=== PATIENT | female | born 1985 | race Caucasian/White ===

== ENCOUNTER 2022-12-11 21:21 | Outpatient (CLI) | payer OTHER, SELFPAY ==
[2022-12-11 21:38] LABS: Basophils Absolute Auto 0.06 K/mm3 (0.00-0.10); Basophils Percent Auto 0.7 % (0.0-1.0); Eosinophils Percent Auto 1.1 % (1.0-6.0); Hematocrit 40.5 % (35.0-49.0); Immature Granulocyte Absolute 0.03 K/mm3 (0.00-0.00); Immature Granulocyte Percent A 0.3 % (0.0-0.0); Lymphocytes Absolute Auto 3.23 K/mm3 (1.10-4.50); Lymphocytes Percent Auto 35.2 % (18.0-42.0); Mean Corpuscular HGB Conc 34.6 g/dL (32.0-36.0); Mean Corpuscular Hemoglobin 32.7 pg (27.0-31.0); Mean Corpuscular Volume 94.6 fL (78.0-102.0); Mean Platelet Volume 9.5 fl (9.2-11.8); Monocytes Absolute Auto 0.64 K/mm3 (0.10-0.90); Neutrophils Absolute Auto 5.1 K/mm3 (1.7-7.2); Neutrophils Percent Auto 55.7 % (50.0-70.0); Platelet Count Result 291 K/mm3 (150-420); Red Blood Count 4.28 M/mm3 (4.20-5.40); Red Cell Distribution Width 11.9 % (11.6-14.4); White Blood Count 9.2 K/mm3 (4.8-10.8)
[2022-12-11 22:02] LABS: Alanine Aminotransferase 55 U/L (14-59); Albumin Level 4.1 g/dL (3.4-5.0); Alkaline Phosphatase 99 U/L (46-116); Anion Gap 9 mmol/L (8-16); Aspartate Amino Transferase 26 U/L (15-37); Bilirubin,Total 0.3 mg/dL (0.00-1.00); Blood Urea Nitrogen 14 mg/dL (7-18); Calcium 9.2 mg/dL (8.5-10.1); Carbon Dioxide 30 mmol/L (21-32); Chloride 102 mmol/L (98-108); Cholesterol 179 mg/dL (0-200); Estimated Glomerular Filt Rate > 60; Glucose 101 mg/dL (70-99); HDL Direct 50 mg/dL (40-60); LDL Cholesterol Calculated 101 mg/dL (<130); Osmolality Calculated 292 mOsm/kg (285-295); Potassium 3.6 mmol/L (3.5-5.1); Sodium 141 mmol/L (136-145); Total Protein 7.9 g/dL (6.4-8.2); Triglycerides 141 mg/dL (0-150)
== END 2022-12-11 21:22 | disposition home or self-care (01) ==
LOC: CHSLAB 21:24
PROVIDERS: PCP Family Medicine; Visit Provider Family Medicine
DX: Z00.00 Encounter for general adult medical examination without abnormal findings (principal)
CPT/HCPCS: 36415; 80053; 80061; 85025

== ENCOUNTER 2024-10-23 09:20 | Outpatient (CLI) | payer OTHER, SELFPAY ==
[2024-10-23 09:35] LABS: Basophils Absolute Auto 0.06 K/mm3 (0.00-0.10); Eosinophils Absolute Auto 0.15 K/mm3 (0.02-0.50); Eosinophils Percent Auto 2.4 % (1.0-6.0); Hematocrit 41.3 % (35.0-49.0); Immature Granulocyte Absolute 0.02 K/mm3 (0.00-0.00); Immature Granulocyte Percent A 0.3 % (0.0-0.0); Lymphocytes Absolute Auto 2.28 K/mm3 (1.10-4.50); Lymphocytes Percent Auto 36.2 % (18.0-42.0); Mean Corpuscular HGB Conc 33.9 g/dL (32-36); Mean Corpuscular Hemoglobin 31.8 pg (27.0-31.0); Mean Corpuscular Volume 93.9 fL (78.0-102.0); Mean Platelet Volume 9.4 fl (9.2-11.8); Monocytes Absolute Auto 0.41 K/mm3 (0.10-0.90); Monocytes Percent Auto 6.5 % (2.0-11.0); Neutrophils Absolute Auto 3.37 K/mm3 (1.70-7.20); Neutrophils Percent Auto 53.6 % (50.0-70.0); Platelet Count Result 305 K/mm3 (150-420); Red Cell Distribution Width 12.1 % (11.6-14.4); White Blood Count 6.3 K/mm3 (4.8-10.8)
[2024-10-23 09:54] LABS: Alanine Aminotransferase 44 U/L (6-35); Albumin Level 4.3 g/dL (3.5-5.1); Alkaline Phosphatase 82 U/L (38-126); Anion Gap 4 mmol/L (4-12); Aspartate Amino Transferase 39 U/L (14-36); Bilirubin,Total 0.7 mg/dL (0.2-1.3); Blood Urea Nitrogen 14 mg/dL (7-17); Calcium 9.3 mg/dL (8.4-10.2); Carbon Dioxide 29 mmol/L (22-30); Chloride 106 mmol/L (98-107); Cholesterol 210 mg/dL (0-200); Estimated Glomerular Filt Rate > 60; Glucose 105 mg/dL (65-110); HDL Direct 64 mg/dL; LDL Cholesterol Calculated 130 mg/dL (<130); Osmolality Calculated 288 mOsm/kg (285-295); Potassium 4.1 mmol/L (3.4-5.0); Sodium 139 mmol/L (137-145); Total Protein 7.2 g/dL (6.3-8.2); Triglycerides 79 mg/dL (<150)
[2024-10-23 10:34] LABS: Thyroid Stimulating Hormone Reflex 1.17 u/IU/mL (0.36-3.74)
[2024-10-26 07:24] LABS: Hepatitis A Antibody IgM NON-REACTIVE (NON-REACTIVE); Hepatitis B Core Antibody NON-REACTIVE (NON-REACTIVE); Hepatitis B Surface Antigen NON-REACTIVE (NON-REACTIVE); Hepatitis C Virus Antibody NON-REACTIVE (NON-REACTIVE)
== END 2024-10-23 09:21 | disposition home or self-care (01) ==
PROVIDERS: PCP Family Medicine; Visit Provider Family Medicine
DX: Z00.00 Encounter for general adult medical examination without abnormal findings (principal); E03.9 Hypothyroidism, unspecified; R74.01 Elevation of levels of liver transaminase levels
CPT/HCPCS: 36415; 80053; 80061; 80074; 84443; 85025

== ENCOUNTER 2024-11-18 08:25 | Outpatient (CLI) | payer OTHER, SELFPAY ==
--- NOTE | ~2024-11-18 | US_ITS ---
Limited Abdominal Sonogram: Real-time sonographic imaging of the right upper quadrant was performed. Clinical History: Abnormal liver enzyme levels Findings: The liver appears normal with no evidence of mass lesion or bile duct dilatation. Main por panda vein demonstrates normal direction of flow. The gallbladder is well distended, and appears normal with no evidence of gallstone or wall thickening. The common bile duct measures 3 mm. The visualize d pancreas, aorta, and IVC are unremarkable. Impression: No significant abnormality seen. Reviewed, dictated and finalized at location M. Impression: No significant abnormality seen.
--- NOTE | ~2024-11-18 | US_ITS ---
US axilla LT 11/18/2024 08:53 Indication: Right axillary lump for 2 weeks. Procedure: High-resolution ultrasound of the left axilla Comparison: No prior studies for comparison. Findings: In the area palpable concern there is a lymph node measuring 2.3 x 2 x 1.2 cm with fatty hi lum. Lymph node is mildly enlarged, likely reactive. Impression: 1: Mild left axillary lymphadenopathy corresponding to the area of palpable concern, likely reactive. BI-RADS CATEGORY 2 - BENIGN FINDINGS Reviewed, dictated and finalized at location [] Impression: 1: Mild left axillary lymphadenopathy corresponding to the area of palpable con cern, likely reactive. BI-RADS CATEGORY 2 - BENIGN FINDINGS
== END 2024-11-18 08:26 | disposition home or self-care (01) ==
LOC: CHSIMG 08:27
PROVIDERS: PCP Family Medicine; Visit Provider Family Medicine
DX: R74.01 Elevation of levels of liver transaminase levels (principal); M79.89 Other specified soft tissue disorders; R59.0 Localized enlarged lymph nodes
CPT/HCPCS: 76705; 76882